=== PATIENT | male | born 1955 | race American Indian/Alaskan Native ===

== ENCOUNTER 2017-05-29 07:43 | Inpatient (IN) | payer OTHER ==
--- NOTE | 2017-05-29 07:58 | Emergency Department Report ---
ED General Adult HPI - General Chief complaint: Dyspnea/Respdistress Stated complaint: ALYCIA Time Seen by Provider: 05/29/17 07:57 Source: patient Mode of arrival: Ambulatory Limitations: No Limitations - History of Present Illness Initial comments: Patient is 62-year-old male past medical history of COPD who presents with severe shortness of breath that occurred today. Patient's shortness of breath is severe history is limited due to acuity of the patient's condition. Patient state that his shortness of breath started about 4 hours ago and has progressively gotten worse. Patient states that nothing makes it better or worse. He's had several years of smoking and he also has some neck swelling. - Related Data Home Medications Medication Instructions Recorded Confirmed Last Taken RX: No Known Home Medications [No 05/29/17 05/29/17 Unknown Reported Home Medications] Allergies Allergy/AdvReac Type Severity Reaction Status Date / Time No Known Allergies Allergy Unverified 05/29/17 07:50 ED Review of Systems ROS: Stated complaint: ALYCIA Other details as noted in HPI Constitutional: fever. denies: chills Eyes: denies: eye pain, eye discharge, vision change ENT: denies: ear pain, throat pain Respiratory: see HPI, shortness of breath. denies: cough, wheezing Cardiovascular: dyspnea on exertion. denies: chest pain, palpitations Endocrine: no symptoms reported Gastrointestinal: denies: abdominal pain, nausea, diarrhea Genitourinary: denies: urgency, dysuria Musculoskeletal: denies: back pain, joint swelling, arthralgia Skin: denies: rash, lesions Neurological: denies: headache, weakness, paresthesias Psychiatric: denies: anxiety, depression Hematological/Lymphatic: denies: easy bleeding, easy bruising ED Past Medical Hx - Past Medical History Previous Medical History?: No - Surgical History Past Surgical History?: No - Social History Smoking Status: Current Every Day Smoker Substance Use Type: None - Medications Home Medications: Home Medications Medication Instructions Recorded Confirmed Last Taken Type RX: No Known Home Medications [No 05/29/17 05/29/17 Unknown History Reported Home Medications] ED Physical Exam - General Limitations: No Limitations General appearance: alert, in no apparent distress - Head Head exam: Present: atraumatic, normocephalic - Eye Eye exam: Present: normal appearance - ENT ENT exam: Present: mucous membranes moist - Neck Neck exam: Present: normal inspection - Respiratory Respiratory exam: Present: respiratory distress, wheezes, accessory muscle use - Cardiovascular Cardiovascular Exam: Present: tachycardia. Absent: systolic murmur, diastolic murmur, rubs, gallop - GI/Abdominal GI/Abdominal exam: Present: soft, normal bowel sounds - Rectal Rectal exam: Present: deferred - Extremities Exam Extremities exam: Present: normal inspection - Back Exam Back exam: Present: normal inspection - Neurological Exam Neurological exam: Present: alert, oriented X3 - Psychiatric Psychiatric exam: Present: normal affect, normal mood - Skin Skin exam: Present: warm, dry, intact, normal color. Absent: rash ED Course Vital Signs 05/29/17 05/29/17 05/29/17 07:48 07:50 07:55 Temperature 100.7 F H Pulse Rate 118 H 113 H Pulse Rate [ Bilateral Throughout] Respiratory 28 H 28 H 27 H Rate Respiratory Rate [Bilateral Throughout] Blood Pressure 175/97 Blood Pressure [Left] O2 Sat by Pulse 96 96 Oximetry 05/29/17 05/29/17 05/29/17 08:00 08:15 08:30 Temperature Pulse Rate 122 H 113 H 110 H Pulse Rate [ Bilateral Throughout] Respiratory 29 H 30 H 25 H Rate Respiratory Rate [Bilateral Throughout] Blood Pressure 125/82 129/79 133/90 Blood Pressure [Left] O2 Sat by Pulse 100 80 L 94 Oximetry 05/29/17 05/29/17 05/29/17 08:45 09:00 09:03 Temperature Pulse Rate 118 H 116 H 116 H Pulse Rate [ Bilateral Throughout] Respiratory 23 19 26 H Rate Respiratory Rate [Bilateral Throughout] Blood Pressure 126/65 142/88 142/88 Blood Pressure [Left] O2 Sat by Pulse 100 100 97 Oximetry 05/29/17 05/29/17 05/29/17 09:05 09:06 09:15 Temperature Pulse Rate 115 H Pulse Rate [ 115 H 116 H Bilateral Throughout] Respiratory 24 Rate Respiratory 21 30 H Rate [Bilateral Throughout] Blood Pressure 127/87 Blood Pressure [Left] O2 Sat by Pulse 100 Oximetry 05/29/17 05/29/17 05/29/17 09:30 09:45 10:00 Temperature Pulse Rate 113 H 111 H 112 H Pulse Rate [ Bilateral Throughout] Respiratory 23 20 18 Rate Respiratory Rate [Bilateral Throughout] Blood Pressure 137/80 128/71 134/78 Blood Pressure [Left] O2 Sat by Pulse 100 100 100 Oximetry 05/29/17 05/29/17 05/29/17 10:43 10:45 11:00 Temperature Pulse Rate 106 H Pulse Rate [ Bilateral Throughout] Respiratory 34 H Rate Respiratory Rate [Bilateral Throughout] Blood Pressure 134/78 134/78 157/102 Blood Pressure [Left] O2 Sat by Pulse 98 99 Oximetry 05/29/17 11:50 Temperature 102.8 F H Pulse Rate 106 H Pulse Rate [ Bilateral Throughout] Respiratory 24 Rate Respiratory Rate [Bilateral Throughout] Blood Pressure Blood Pressure 122/84 [Left] O2 Sat by Pulse 100 Oximetry - Reevaluation(s) Reevaluation #1: 05/29/17 13:19 Patient is doing better on BiPAP patient will be admitted to the hospital service. ED Medical Decision Making - Lab Data Result diagrams: 05/29/17 07:58 05/29/17 07:58 Lab Results 05/29/17 05/29/17 05/29/17 Range/Units 07:58 07:58 08:00 WBC 23.6 H (4.5-11.0) K/mm3 RBC 5.09 H (3.65-5.03) M/mm3 Hgb 15.8 H (11.8-15.2) gm/dl Hct 46.4 H (35.5-45.6) % MCV 91 (84-94) fl MCH 31 (28-32) pg MCHC 34 (32-34) % RDW 13.7 (13.2-15.2) % Plt Count 177 (140-440) K/mm3 Add Manual Diff Complete Total Counted 100 Seg Neuts % (Manual) 91.0 H (40.0-70.0) % Band Neutrophils % 2.0 % Lymphocytes % (Manual) 2.0 L (13.4-35.0) % Reactive Lymphs % (Man) 0 % Monocytes % (Manual) 5.0 (0.0-7.3) % Eosinophils % (Manual) 0 (0.0-4.3) % Basophils % (Manual) 0 (0.0-1.8) % Metamyelocytes % 0 % Myelocytes % 0 % Promyelocytes % 0 % Blast Cells % 0 % Nucleated RBC % Not Reportable Seg Neutrophils # Man 21.5 H (1.8-7.7) K/mm3 Band Neutrophils # 0.5 K/mm3 Lymphocytes # (Manual) 0.5 L (1.2-5.4) K/mm3 Abs React Lymphs (Man) 0.0 K/mm3 Monocytes # (Manual) 1.2 H (0.0-0.8) K/mm3 Eosinophils # (Manual) 0.0 (0.0-0.4) K/mm3 Basophils # (Manual) 0.0 (0.0-0.1) K/mm3 Metamyelocytes # 0.0 K/mm3 Myelocytes # 0.0 K/mm3 Promyelocytes # 0.0 K/mm3 Blast Cells # 0.0 K/mm3 WBC Morphology Not Reportable Hypersegmented Neuts Not Reportable Hyposegmented Neuts Not Reportable Hypogranular Neuts Not Reportable Smudge Cells Not Reportable Toxic Granulation Not Reportable Toxic Vacuolation Not Reportable Dohle Bodies Not Reportable Pelger-Huet Anomaly Not Reportable Olegario Rods Not Reportable Platelet Estimate Appears normal Clumped Platelets Not Reportable Plt Clumps, EDTA Not Reportable Large Platelets Not Reportable Giant Platelets Not Reportable Platelet Satelliting Not Reportable Plt Morphology Comment Not Reportable RBC Morphology Normal Dimorphic RBCs Not Reportable Polychromasia Not Reportable Hypochromasia Not Reportable Poikilocytosis Not Reportable Anisocytosis Not Reportable Microcytosis Not Reportable Macrocytosis Not Reportable Spherocytes Not Reportable Pappenheimer Bodies Not Reportable Sickle Cells Not Reportable Target Cells Not Reportable Tear Drop Cells Not Reportable Ovalocytes Not Reportable Helmet Cells Not Reportable Roche-Pittston Bodies Not Reportable Shandon Rings Not Reportable Diana Cells Not Reportable Bite Cells Not Reportable Crenated Cell Not Reportable Elliptocytes Not Reportable Acanthocytes (Spur) Not Reportable Rouleaux Not Reportable Hemoglobin C Crystals Not Reportable Schistocytes Not Reportable Malaria parasites Not Reportable João Bodies Not Reportable Hem Pathologist Commnt No POC ABG pH (7.35-7.45) POC ABG pCO2 (35-45) POC ABG pO2 (80-105) POC ABG HCO3 POC ABG Total CO2 POC ABG O2 Sat POC ABG Base Excess FiO2 % Sodium 140 (137-145) mmol/L Potassium 3.7 (3.6-5.0) mmol/L Chloride 100.9 (98-107) mmol/L Carbon Dioxide 21 L (22-30) mmol/L Anion Gap 22 mmol/L BUN 14 (9-20) mg/dL Creatinine 0.9 (0.8-1.5) mg/dL Estimated GFR > 60 ml/min BUN/Creatinine Ratio 15.55 % Glucose 161 H (75-100) mg/dL Lactic Acid (0.7-2.0) mmol/L Calcium 9.5 (8.4-10.2) mg/dL Total Creatine Kinase (55-170) units/L Troponin T < 0.010 (0.00-0.029) ng/mL NT-Pro-B Natriuret Pep (0-900) pg/mL Urine Color Yellow (Yellow) Urine Turbidity Clear (Clear) Urine pH 6.0 (5.0-7.0) Ur Specific Frederic 1.036 H (1.003-1.030) Urine Protein 100 mg/dl (Negative) mg/dL Urine Glucose (UA) Neg (Negative) mg/dL Urine Ketones Tr (Negative) mg/dL Urine Blood Mod (Negative) Urine Nitrite Neg (Negative) Urine Bilirubin Neg (Negative) Urine Urobilinogen < 2.0 (<2.0) mg/dL Ur Leukocyte Esterase Neg (Negative) Urine WBC (Auto) 1.0 (0.0-6.0) /HPF Urine RBC (Auto) 4.0 (0.0-6.0) /HPF Urine Mucus Few /HPF Blood Type Antibody Screen 05/29/17 05/29/17 05/29/17 Range/Units 08:08 08:08 08:08 WBC (4.5-11.0) K/mm3 RBC (3.65-5.03) M/mm3 Hgb (11.8-15.2) gm/dl Hct (35.5-45.6) % MCV (84-94) fl MCH (28-32) pg MCHC (32-34) % RDW (13.2-15.2) % Plt Count (140-440) K/mm3 Add Manual Diff Total Counted Seg Neuts % (Manual) (40.0-70.0) % Band Neutrophils % % Lymphocytes % (Manual) (13.4-35.0) % Reactive Lymphs % (Man) % Monocytes % (Manual) (0.0-7.3) % Eosinophils % (Manual) (0.0-4.3) % Basophils % (Manual) (0.0-1.8) % Metamyelocytes % % Myelocytes % % Promyelocytes % % Blast Cells % % Nucleated RBC % Seg Neutrophils # Man (1.8-7.7) K/mm3 Band Neutrophils # K/mm3 Lymphocytes # (Manual) (1.2-5.4) K/mm3 Abs React Lymphs (Man) K/mm3 Monocytes # (Manual) (0.0-0.8) K/mm3 Eosinophils # (Manual) (0.0-0.4) K/mm3 Basophils # (Manual) (0.0-0.1) K/mm3 Metamyelocytes # K/mm3 Myelocytes # K/mm3 Promyelocytes # K/mm3 Blast Cells # K/mm3 WBC Morphology Hypersegmented Neuts Hyposegmented Neuts Hypogranular Neuts Smudge Cells Toxic Granulation Toxic Vacuolation Dohle Bodies Pelger-Huet Anomaly Olegario Rods Platelet Estimate Clumped Platelets Plt Clumps, EDTA Large Platelets Giant Platelets Platelet Satelliting Plt Morphology Comment RBC Morphology Dimorphic RBCs Polychromasia Hypochromasia Poikilocytosis Anisocytosis Microcytosis Macrocytosis Spherocytes Pappenheimer Bodies Sickle Cells Target Cells Tear Drop Cells Ovalocytes Helmet Cells Roche-Pittston Bodies Shandon Rings [place] Cells Bite Cells Crenated Cell Elliptocytes Acanthocytes (Spur) Rouleaux Hemoglobin C Crystals Schistocytes Malaria parasites João Bodies Hem Pathologist Commnt POC ABG pH (7.35-7.45) POC ABG pCO2 (35-45) POC ABG pO2 (80-105) POC ABG HCO3 POC ABG Total CO2 POC ABG O2 Sat POC ABG Base Excess FiO2 % Sodium (137-145) mmol/L Potassium (3.6-5.0) mmol/L Chloride (98-107) mmol/L Carbon Dioxide (22-30) mmol/L Anion Gap mmol/L BUN (9-20) mg/dL Creatinine (0.8-1.5) mg/dL Estimated GFR ml/min BUN/Creatinine Ratio % Glucose (75-100) mg/dL Lactic Acid 2.80 H* (0.7-2.0) mmol/L Calcium (8.4-10.2) mg/dL Total Creatine Kinase 273 H (55-170) units/L Troponin T (0.00-0.029) ng/mL NT-Pro-B Natriuret Pep 683.4 (0-900) pg/mL Urine Color (Yellow) Urine Turbidity (Clear) Urine pH (5.0-7.0) Ur Specific Frederic (1.003-1.030) Urine Protein (Negative) mg/dL Urine Glucose (UA) (Negative) mg/dL Urine Ketones (Negative) mg/dL Urine Blood (Negative) Urine Nitrite (Negative) Urine Bilirubin (Negative) Urine Urobilinogen (<2.0) mg/dL Ur Leukocyte Esterase (Negative) Urine WBC (Auto) (0.0-6.0) /HPF Urine RBC (Auto) (0.0-6.0) /HPF Urine Mucus /HPF Blood Type Antibody Screen 05/29/17 05/29/17 Range/Units 08:14 09:22 WBC (4.5-11.0) K/mm3 RBC (3.65-5.03) M/mm3 Hgb (11.8-15.2) gm/dl Hct (35.5-45.6) % MCV (84-94) fl MCH (28-32) pg MCHC (32-34) % RDW (13.2-15.2) % Plt Count (140-440) K/mm3 Add Manual Diff Total Counted Seg Neuts % (Manual) (40.0-70.0) % Band Neutrophils % % Lymphocytes % (Manual) (13.4-35.0) % Reactive Lymphs % (Man) % Monocytes % (Manual) (0.0-7.3) % Eosinophils % (Manual) (0.0-4.3) % Basophils % (Manual) (0.0-1.8) % Metamyelocytes % % Myelocytes % % Promyelocytes % % Blast Cells % % Nucleated RBC % Seg Neutrophils # Man (1.8-7.7) K/mm3 Band Neutrophils # K/mm3 Lymphocytes # (Manual) (1.2-5.4) K/mm3 Abs React Lymphs (Man) K/mm3 Monocytes # (Manual) (0.0-0.8) K/mm3 Eosinophils # (Manual) (0.0-0.4) K/mm3 Basophils # (Manual) (0.0-0.1) K/mm3 Metamyelocytes # K/mm3 Myelocytes # K/mm3 Promyelocytes # K/mm3 Blast Cells # K/mm3 WBC Morphology Hypersegmented Neuts Hyposegmented Neuts Hypogranular Neuts Smudge Cells Toxic Granulation Toxic Vacuolation Dohle Bodies Pelger-Huet Anomaly Olegario Rods Platelet Estimate Clumped Platelets Plt Clumps, EDTA Large Platelets Giant Platelets Platelet Satelliting Plt Morphology Comment RBC Morphology Dimorphic RBCs Polychromasia Hypochromasia Poikilocytosis Anisocytosis Microcytosis Macrocytosis Spherocytes Pappenheimer Bodies Sickle Cells Target Cells Tear Drop Cells Ovalocytes Helmet Cells Roche-Pittston Bodies [place] Rings [place] Cells Bite Cells Crenated Cell Elliptocytes Acanthocytes (Spur) Rouleaux Hemoglobin C Crystals Schistocytes Malaria parasites João Bodies Hem Pathologist Commnt POC ABG pH 7.452 H (7.35-7.45) POC ABG pCO2 28.2 L (35-45) POC ABG pO2 95 (80-105) POC ABG HCO3 19.7 POC ABG Total CO2 21 POC ABG O2 Sat 98 POC ABG Base Excess -4 FiO2 30 % Sodium (137-145) mmol/L Potassium (3.6-5.0) mmol/L Chloride (98-107) mmol/L Carbon Dioxide (22-30) mmol/L Anion Gap mmol/L BUN (9-20) mg/dL Creatinine (0.8-1.5) mg/dL Estimated GFR ml/min BUN/Creatinine Ratio % Glucose (75-100) mg/dL Lactic Acid (0.7-2.0) mmol/L Calcium (8.4-10.2) mg/dL Total Creatine Kinase (55-170) units/L Troponin T (0.00-0.029) ng/mL NT-Pro-B Natriuret Pep (0-900) pg/mL Urine Color (Yellow) Urine Turbidity (Clear) Urine pH (5.0-7.0) Ur Specific Frederic (1.003-1.030) Urine Protein (Negative) mg/dL Urine Glucose (UA) (Negative) mg/dL Urine Ketones (Negative) mg/dL Urine Blood (Negative) Urine Nitrite (Negative) Urine Bilirubin (Negative) Urine Urobilinogen (<2.0) mg/dL Ur Leukocyte Esterase (Negative) Urine WBC (Auto) (0.0-6.0) /HPF Urine RBC (Auto) (0.0-6.0) /HPF Urine Mucus /HPF Blood Type B POSITIVE Antibody Screen Negative - EKG Data -: EKG Interpreted by Me - EKG Data 05/29/17 13:20 EKG shows sinus tachycardia normal axis and no ST segment elevations or T-wave inversions. - Radiology Data Radiology results: report reviewed, image reviewed CT chest meningeal: Shows no pulmonary embolism also shows enlarged neck pathology neoplasm or lymphadenopathy AR suspected. Recommendation for dedicated CT contrast of neck. - Medical Decision Making Chief medical diagnosis: COPD exacerbation Differential diagnosis: Pulmonary embolism, pneumonia, sepsis, non-STEMI, congestive heart failure I will get EKG, fluid bolus, blood cultures, CT angiogram, troponin, IV steroids and I will admit the patient with BiPAP Discussed patient with Dr. Li patient has respiratory distress and has a potentially life-threatening illness. Discussed plan with patient he agrees with plan. Critical Care Time: Yes Critical care time in (mins) excluding proc time.: 35 Critical care attestation.: If time is entered above; I have spent that time in minutes in the direct care of this critically ill patient, excluding procedure time. Critical care time spent a patient's bedside 20 minutes Critical care time spent reviewing patient's laboratory findings 10 minutes Critical care time spent in old record 0 minutes Critical care consult with patient's family 5 minutes ED Disposition Clinical Impression: Respiratory distress COPD (chronic obstructive pulmonary disease) Qualifiers: COPD type: unspecified COPD Qualified Code(s): J44.9 - Chronic obstructive pulmonary disease, unspecified Sepsis Qualifiers: Sepsis type: sepsis due to unspecified organism Qualified Code(s): A41.9 - Sepsis, unspecified organism Disposition: OP ADMIT IP TO THIS HOSP Is pt being admited?: Yes Does the pt Need Aspirin: No Condition: Stable
[2017-05-29] MEDS ORDERED: ATROVENT IH ONE (07:59)
[2017-05-29] MEDS ORDERED: PROVENTIL IH ONE (07:59)
[2017-05-29] MEDS: NACL 0.9% 1000 ML IV ONE ×2 (08:10→08:32)
[2017-05-29 08:29] LABS: Hematocrit 46.4 % (35.5-45.6); Hemoglobin 15.8 gm/dl (11.8-15.2); Mean Corpuscular HGB Conc 34 % (32-34); Mean Corpuscular Hemoglobin 31 pg (28-32); Mean Corpuscular Volume 91 fl (84-94); Platelet Count 177 K/mm3 (140-440); Red Blood Count 5.09 M/mm3 (3.65-5.03); Red Cell Distribution Width 13.7 % (13.2-15.2)
[2017-05-29 08:31] LABS: White Blood Count 23.6 K/mm3 (4.5-11.0)
[2017-05-29 08:35] LABS: Anion Gap 22 mmol/L; BUN/Creatinine Ratio 15.55; Blood Urea Nitrogen 14 mg/dL (9-20); Calcium 9.5 mg/dL (8.4-10.2); Carbon Dioxide 21 mmol/L (22-30); Chloride 100.9 mmol/L (98-107); Glucose 161 mg/dL (75-100); Potassium 3.7 mmol/L (3.6-5.0); Sodium 140 mmol/L (137-145)
--- NOTE | 2017-05-29 08:49 | XRay Report ---
AP CHEST: HISTORY: Shortness of breath AP view of the chest demonstrates a normal mediastinal and cardiac contour with clear lungs and normal bony and soft tissue structures. IMPRESSION: Unremarkable AP chest.
[2017-05-29 09:41] LABS: Basophils % (Manual) 0 % (0.0-1.8); Blastocytes % (Manual) 0 %; Eosinophils % (Manual) 0 % (0.0-4.3)
[2017-05-29 09:42] LABS: Diff Status Complete; RBC Morphology Normal
[2017-05-29 09:58] LABS: ISTAT Base Excess -4; ISTAT HCO3 19.7; ISTAT PCO2 28.2 (35-45); ISTAT PH 7.452 (7.35-7.45); ISTAT PO2 95 (80-105); ISTAT SO2 98; ISTAT TCO2 21
[2017-05-29] MEDS ORDERED: NACL ONE (10:04)
[2017-05-29] MEDS ORDERED: VANCOMYCIN VIAL IV ONE (10:57)
[2017-05-29] MEDS ORDERED: VANCOMYCIN PHARMACY TO DOSE IV SCH (11:00)
--- NOTE | 2017-05-29 11:06 | Cat Scan Report ---
CTA CHEST INDICATION: Chest pain, shortness of breath, tachycardia. COMPARISON: None similar. FINDINGS: Chest CTA performed following intravenous administration of 100 cc of Omnipaque 350. Rotational MIP's also obtained. Normal heart size. No effusions or adenopathy. No aortic aneurysm, dissection or suspicious pulmonary arterial filling defects. Patent central airway. Normal thyroid. Subtle fat stranding about the imaged neck not excluded with prominent soft tissue in the imaged hypopharynx, axial series 3, images 1-14. Approximately 3 cm round soft tissue density in the right neck as on axial image 2 also partially imaged, though asymmetric to the opposite side given some patient tilt, conceivably the submandibular gland versus a lymph node. Diffuse bilateral emphysematous changes with largest peripheral bullae in the upper lobes measuring up to approximately 4.5 cm as on axial image 89. Nonspecific distal esophageal wall prominence/thickening, not excluded for gastroesophageal reflux and/or hiatal hernia, amongst others. Imaged upper abdomen demonstrates left hepatic lobe tip wrapping around the spleen. Few scattered hepatic hypodensities, the largest approximately 1.1 cm in the left upper quadrant on axial image 217, series 2 and possibly cyst with others similar or smaller. Slight hypodense bilateral adrenal prominence/possible hyperplasia. Multilevel prominent thoracic spine degenerative osteophytes as also lower cervical. Lower thoracic disc degeneration/vacuum phenomenon as well. CONCLUSION: 1. No acute chest process or CT evidence of pulmonary embolism in this patient with underlying COPD. 2. Imaged neck pathology including neoplasm and/or lymphadenopathy not entirely excluded, as described. Please correlate clinically, with prior relevant imaging or further with dedicated neck contrasted CT, as appropriate. 3. Various other incidental findings, as above. I phoned the above results to Dr. Espinoza in the ER, 10:55 AM, 05/29/2017. Thank you for the opportunity to participate in this patient's care.
[2017-05-29] MEDS ORDERED: ZOSYN/NS 3.375GM/50ML 3.375 GM/50 ML BAG IV ONE (11:28)
[2017-05-29] MEDS ORDERED: NACL 0.9% 500 ML 500 ML ONE (11:29)
[2017-05-29] MEDS ORDERED: TYLENOL ONE (11:55)
[2017-05-29] MEDS ORDERED: TYLENOL PO ONE (11:56)
[2017-05-29] MEDS ORDERED: ZOSYN/NS 3.375GM/50ML 3.375 GM/50 ML BAG IV SCH (12:00)
--- NOTE | 2017-05-29 12:07 | History and Physical Report ---
<ANNIE INFANTE - Last Filed: 05/29/17 13:42> History of Present Illness Date of examination: 05/29/17 Date of admission: 05/29/17 11:03 Chief complaint: Shortness of breath History of present illness: Patient is 62 years old male with past medical history of COPD , who presents to the emergency department with complaining of shortness of breath.Until yesterday patient was at his normal baseline state of health. Patient developed difficulty of breathing yesterday and he has had progressive worsening of shortness of breath. This morning while going to the bathroom, shortly thereafter, he felt like he could not catch his breath and got worried so his brought him to the ED. Patient denies she has had no fevers, chills , or night sweats. No hx of recurrent pneumonia. He has no sick contact, TB exposure (that she knows of ie incarcerated, homeless). She also has no pets, has not been around any farm animals, and has not traveled recently or been around those who have. Patient in the emergency department found to have fever 102.7 and septic. Past History Past Medical History: COPD Past Surgical History: No surgical history Social history: no significant social history, smoking Family history: CAD, hypertension Medications and Allergies Allergies Allergy/AdvReac Type Severity Reaction Status Date / Time No Known Allergies Allergy Unverified 05/29/17 07:50 Home Medications Medication Instructions Recorded Confirmed Last Taken Type No Known Home Medications [No 05/29/17 05/29/17 Unknown History Reported Home Medications] Active Meds: Active Medications Enoxaparin Sodium (Lovenox) 40 mg SUB-Q QDAY AGUEDA Piperacillin Sod/Tazobactam Sod (Zosyn/Ns 4.5gm/100ml) 4.5 gm in 100 mls @ 200 mls/hr IV Q8H AGUEDA Vancomycin HCl 1,500 mg/ (Sodium Chloride) 515 mls @ 257.5 mls/hr IV Q12H AGUEDA Levofloxacin/Dextrose (Levaquin 750mg/150ml) 750 mg in 150 mls @ 100 mls/hr IV Q24HR AGUEDA PRN Reason: Protocol Vancomycin HCl (Vancomycin Pharmacy To Dose) 1 each IV PKCONSULT AGUEDA PRN Reason: Protocol Review of Systems Constitutional: no weight loss, no weight gain, no fever Ears, nose, mouth and throat: no ear pain, no ear discharge, no tinnitis, no decreased hearing, no nose pain Cardiovascular: shortness of breath, dyspnea on exertion, no chest pain, no orthopnea, no palpitations Respiratory: shortness of breath, dyspnea on exertion, congestion, no cough, no cough with sputum, no hemoptysis Gastrointestinal: no nausea, no vomiting, no diarrhea, no constipation, no change in bowel habits, no hematemesis Rectal: no pain, no bleeding Musculoskeletal: no neck stiffness, no neck pain, no shooting arm pain, no low back pain Integumentary: no pruritis, no redness, no sores, no jaundice Neurological: no transient paralysis, no paralysis, no weakness, no parathesias , no numbness Psychiatric: no memory loss, no change in sleep habits, no insomnia, no change in appetite Endocrine: no cold intolerance, no heat intolerance, no polyphagia, no excessive thirst Hematologic/Lymphatic: no easy bruising, no easy bleeding Allergic/Immunologic: no urticaria, no allergic rhinitis Exam - Constitutional Vitals: Temp Pulse Resp BP Pulse Ox 100.7 F H 106 H 34 H 157/102 99 05/29/17 07:48 05/29/17 11:00 05/29/17 11:00 05/29/17 11:00 05/29/17 11:00 General appearance: Present: mild distress (On BiPAP 35% with Spo2 >95%) - EENT Eyes: Present: PERRL ENT: hearing intact - Neck Neck: Present: supple - Respiratory Respiratory effort: normal Respiratory: bilateral: rhonchi - Cardiovascular Rhythm: regular Heart Sounds: Present: S1 & S2 - Extremities Extremities: no ischemia Peripheral Pulses: within normal limits - Abdominal General gastrointestinal: Present: soft, non-tender Male genitourinary: Present: deferred - Rectal Rectal Exam: deferred - Integumentary Integumentary: Present: clear, warm, dry - Musculoskeletal Musculoskeletal: strength equal bilaterally - Psychiatric Psychiatric: appropriate mood/affect - Neurologic Neurologic: CNII-XII intact - Allied Health Allied health notes reviewed: nursing Results - Labs CBC & Chem 7: 05/29/17 07:58 05/29/17 07:58 Labs: Laboratory Last Values WBC 23.6 K/mm3 (4.5-11.0) H 05/29/17 07:58 RBC 5.09 M/mm3 (3.65-5.03) H 05/29/17 07:58 Hgb 15.8 gm/dl (11.8-15.2) H 05/29/17 07:58 Hct 46.4 % (35.5-45.6) H 05/29/17 07:58 MCV 91 fl (84-94) 05/29/17 07:58 MCH 31 pg (28-32) 05/29/17 07:58 MCHC 34 % (32-34) 05/29/17 07:58 RDW 13.7 % (13.2-15.2) 05/29/17 07:58 Plt Count 177 K/mm3 (140-440) 05/29/17 07:58 Add Manual Diff Complete 05/29/17 07:58 Total Counted 100 05/29/17 07:58 Seg Neuts % (Manual) 91.0 % (40.0-70.0) H 05/29/17 07:58 Band Neutrophils % 2.0 % 05/29/17 07:58 Lymphocytes % (Manual) 2.0 % (13.4-35.0) L 05/29/17 07:58 Reactive Lymphs % (Man) 0 % 05/29/17 07:58 Monocytes % (Manual) 5.0 % (0.0-7.3) 05/29/17 07:58 Eosinophils % (Manual) 0 % (0.0-4.3) 05/29/17 07:58 Basophils % (Manual) 0 % (0.0-1.8) 05/29/17 07:58 Metamyelocytes % 0 % 05/29/17 07:58 Myelocytes % 0 % 05/29/17 07:58 Promyelocytes % 0 % 05/29/17 07:58 Blast Cells % 0 % 05/29/17 07:58 Nucleated RBC % Not Reportable 05/29/17 07:58 Seg Neutrophils # Man 21.5 K/mm3 (1.8-7.7) H 05/29/17 07:58 Band Neutrophils # 0.5 K/mm3 05/29/17 07:58 Lymphocytes # (Manual) 0.5 K/mm3 (1.2-5.4) L 05/29/17 07:58 Abs React Lymphs (Man) 0.0 K/mm3 05/29/17 07:58 Monocytes # (Manual) 1.2 K/mm3 (0.0-0.8) H 05/29/17 07:58 Eosinophils # (Manual) 0.0 K/mm3 (0.0-0.4) 05/29/17 07:58 Basophils # (Manual) 0.0 K/mm3 (0.0-0.1) 05/29/17 07:58 Metamyelocytes # 0.0 K/mm3 05/29/17 07:58 Myelocytes # 0.0 K/mm3 05/29/17 07:58 Promyelocytes # 0.0 K/mm3 05/29/17 07:58 Blast Cells # 0.0 K/mm3 05/29/17 07:58 WBC Morphology Not Reportable 05/29/17 07:58 Hypersegmented Neuts Not Reportable 05/29/17 07:58 Hyposegmented Neuts Not Reportable 05/29/17 07:58 Hypogranular Neuts Not Reportable 05/29/17 07:58 Smudge Cells Not Reportable 05/29/17 07:58 Toxic Granulation Not Reportable 05/29/17 07:58 Toxic Vacuolation Not Reportable 05/29/17 07:58 Dohle Bodies Not Reportable 05/29/17 07:58 Pelger-Huet Anomaly Not Reportable 05/29/17 07:58 Olegario Rods Not Reportable 05/29/17 07:58 Platelet Estimate Appears normal 05/29/17 07:58 Clumped Platelets Not Reportable 05/29/17 07:58 Plt Clumps, EDTA Not Reportable 05/29/17 07:58 Large Platelets Not Reportable 05/29/17 07:58 Giant Platelets Not Reportable 05/29/17 07:58 Platelet Satelliting Not Reportable 05/29/17 07:58 Plt Morphology Comment Not Reportable 05/29/17 07:58 RBC Morphology Normal 05/29/17 07:58 Dimorphic RBCs Not Reportable 05/29/17 07:58 Polychromasia Not Reportable 05/29/17 07:58 Hypochromasia Not Reportable 05/29/17 07:58 Poikilocytosis Not Reportable 05/29/17 07:58 Anisocytosis Not Reportable 05/29/17 07:58 Microcytosis Not Reportable 05/29/17 07:58 Macrocytosis Not Reportable 05/29/17 07:58 Spherocytes Not Reportable 05/29/17 07:58 Pappenheimer Bodies Not Reportable 05/29/17 07:58 Sickle Cells Not Reportable 05/29/17 07:58 Target Cells Not Reportable 05/29/17 07:58 Tear Drop Cells Not Reportable 05/29/17 07:58 Ovalocytes Not Reportable 05/29/17 07:58 Helmet Cells Not Reportable 05/29/17 07:58 Roche-Edisto Bodies Not Reportable 05/29/17 07:58 [place]cliff Rings Not Reportable 05/29/17 07:58 [place]light Cells Not Reportable 05/29/17 07:58 Bite Cells Not Reportable 05/29/17 07:58 Crenated Cell Not Reportable 05/29/17 07:58 Elliptocytes Not Reportable 05/29/17 07:58 Acanthocytes (Spur) Not Reportable 05/29/17 07:58 Rouleaux Not Reportable 05/29/17 07:58 Hemoglobin C Crystals Not Reportable 05/29/17 07:58 Schistocytes Not Reportable 05/29/17 07:58 Malaria parasites Not Reportable 05/29/17 07:58 João Bodies Not Reportable 05/29/17 07:58 Hem Pathologist Commnt No 05/29/17 07:58 POC ABG pH 7.452 (7.35-7.45) H 05/29/17 09:22 POC ABG pCO2 28.2 (35-45) L 05/29/17 09:22 POC ABG pO2 95 (80-105) 05/29/17 09:22 POC ABG HCO3 19.7 05/29/17 09:22 POC ABG Total CO2 21 05/29/17 09:22 POC ABG O2 Sat 98 05/29/17 09:22 POC ABG Base Excess -4 05/29/17 09:22 FiO2 30 % 05/29/17 09:22 Sodium 140 mmol/L (137-145) 05/29/17 07:58 Potassium 3.7 mmol/L (3.6-5.0) 05/29/17 07:58 Chloride 100.9 mmol/L (98-107) 05/29/17 07:58 Carbon Dioxide 21 mmol/L (22-30) L 05/29/17 07:58 Anion Gap 22 mmol/L 05/29/17 07:58 BUN 14 mg/dL (9-20) 05/29/17 07:58 Creatinine 0.9 mg/dL (0.8-1.5) 05/29/17 07:58 Estimated GFR > 60 ml/min 05/29/17 07:58 BUN/Creatinine Ratio 15.55 % 05/29/17 07:58 Glucose 161 mg/dL (75-100) H 05/29/17 07:58 Lactic Acid 2.80 mmol/L (0.7-2.0) H* 05/29/17 08:08 Calcium 9.5 mg/dL (8.4-10.2) 05/29/17 07:58 Total Creatine Kinase 273 units/L (55-170) H 05/29/17 08:08 Troponin T < 0.010 ng/mL (0.00-0.029) 05/29/17 07:58 NT-Pro-B Natriuret Pep 683.4 pg/mL (0-900) 05/29/17 08:08 Blood Type B POSITIVE 05/29/17 08:14 Antibody Screen Negative 05/29/17 08:14 - Imaging and Cardiology Chest x-ray: image reviewed (unremarkable) CT scan - chest: image reviewed (Lymphadenopathy VS neck neoplasm) Assessment and Plan Assessment and plan: Acute respiratory failure with hypoxia Patient oxygen saturation improved with BiPAP 35%.Patient currently on BiPAP 35 % with SPO2 98%. No acute respiratory distress noted. Aggressive Nebulizers/Inhalers ABG when necessary Oxygen supplement Pulmonary consult. Supportive care Severe Sepsis Blood and urine culture collected prior to antibiotic Follow-up with cultures Fluid resuscitation and gently IV fluid hydration Patient received IV vancomycin and Zosyn in the emergency department Started on empiric treatment IV Levaquin. Supportive care Leukocytosis Secondary to sepsis Treat with antibiotic and we will repeat CBC Closely monitor Acute COPD exacerbation Continue on Duoneb every 6 hours Wean IV steroid Solumedrol Patient received IV vancomycin and Zosyn in the emergency department. Started on Iv Levaquin Oxygen as necessary Possible pneumonia Unremarkable chest x-ray CTA revealed no evidence pulmonary embolism Fever and physical assessment indicates pneumonia started on Levaquin Elevated lactic acid Secondary to sepsis We will repeat lactic acid level Closely monitor Lymphadenopathy VS neck neoplasm CTA revealed Lymphadenopathy VS neck neoplasm. we will get CT of the neck with contrast in the AM Hypertensive urgency Continue home antihypertensive medications Closely monitor blood pressure Mild Rhabdomyolysis IV fluid hydration Closely monitor total creatinine kinase Tobacco use Smoking cessation counseling done. Patient strongly advised to quit. DVT prophylaxis Lovenox Advance Directives: Yes VTE prophylaxis?: Chemical Contraindication Mechanical VTE Prophylaxis: Treatment Not Indicated Plan of care discussed with patient/family: Yes <PACO NAVARRETE S - Last Filed: 05/29/17 14:41> History of Present Illness Date of admission: 05/29/17 11:03 Medications and Allergies Active Meds: Active Medications Acetaminophen (Tylenol) 650 mg PO Q4H PRN PRN Reason: Pain MILD(1-3)/Fever >100.5/JASSO Albuterol (Proventil) 2.5 mg IH Q4HRT PRN PRN Reason: Shortness Of Breath Albuterol/Ipratropium (Duoneb *Not For Prn Use*) 1 ampul IH Q6HRT AGUEDA Bisacodyl (Dulcolax) 10 mg CO QDAY PRN PRN Reason: Constipation unrelieved by MOM Enoxaparin Sodium (Lovenox) 40 mg SUB-Q QDAY AGUEDA Piperacillin Sod/Tazobactam Sod (Zosyn/Ns 4.5gm/100ml) 4.5 gm in 100 mls @ 200 mls/hr IV Q8H AGUEDA Vancomycin HCl 1,500 mg/ (Sodium Chloride) 515 mls @ 257.5 mls/hr IV Q12H AGUEDA Levofloxacin/Dextrose (Levaquin 750mg/150ml) 750 mg in 150 mls @ 100 mls/hr IV Q24H AGUEDA PRN Reason: Protocol Last Admin: 05/29/17 14:16 Dose: 100 mls/hr Sodium Chloride (Nacl 0.9% 1000 Ml) 1,000 mls @ 75 mls/hr IV DIRECT AGUEDA Magnesium Hydroxide (Milk Of Magnesia) 30 ml PO Q4H PRN PRN Reason: Constipation Methylprednisolone Sodium Succinate (Solu-Medrol) 40 mg IV Q6H [facility] Last Admin: 05/29/17 14:16 Dose: 40 mg Ondansetron HCl (Zofran) 4 mg IM Q4H PRN PRN Reason: Nausea And Vomiting Vancomycin HCl (Vancomycin Pharmacy To Dose) 1 each IV PKCONSULT AGUEDA PRN Reason: Protocol Exam - Constitutional Vitals: Temp Pulse Resp BP Pulse Ox 102.8 F H 106 H 24 141/81 97 05/29/17 11:50 05/29/17 11:50 05/29/17 11:50 05/29/17 12:10 05/29/17 12:10 Results - Labs CBC & Chem 7: 05/29/17 07:58 05/29/17 07:58 Labs: Laboratory Last Values WBC 23.6 K/mm3 (4.5-11.0) H 05/29/17 07:58 RBC 5.09 M/mm3 (3.65-5.03) H 05/29/17 07:58 Hgb 15.8 gm/dl (11.8-15.2) H 05/29/17 07:58 Hct 46.4 % (35.5-45.6) H 05/29/17 07:58 MCV 91 fl (84-94) 05/29/17 07:58 MCH 31 pg (28-32) 05/29/17 07:58 MCHC 34 % (32-34) 05/29/17 07:58 RDW 13.7 % (13.2-15.2) 05/29/17 07:58 Plt Count 177 K/mm3 (140-440) 05/29/17 07:58 Add Manual Diff Complete 05/29/17 07:58 Total Counted 100 05/29/17 07:58 Seg Neuts % (Manual) 91.0 % (40.0-70.0) H 05/29/17 07:58 Band Neutrophils % 2.0 % 05/29/17 07:58 Lymphocytes % (Manual) 2.0 % (13.4-35.0) L 05/29/17 07:58 Reactive Lymphs % (Man) 0 % 05/29/17 07:58 Monocytes % (Manual) 5.0 % (0.0-7.3) 05/29/17 07:58 Eosinophils % (Manual) 0 % (0.0-4.3) 05/29/17 07:58 Basophils % (Manual) 0 % (0.0-1.8) 05/29/17 07:58 Metamyelocytes % 0 % 05/29/17 07:58 Myelocytes % 0 % 05/29/17 07:58 Promyelocytes % 0 % 05/29/17 07:58 Blast Cells % 0 % 05/29/17 07:58 Nucleated RBC % Not Reportable 05/29/17 07:58 Seg Neutrophils # Man 21.5 K/mm3 (1.8-7.7) H 05/29/17 07:58 Band Neutrophils # 0.5 K/mm3 05/29/17 07:58 Lymphocytes # (Manual) 0.5 K/mm3 (1.2-5.4) L 05/29/17 07:58 Abs React Lymphs (Man) 0.0 K/mm3 05/29/17 07:58 Monocytes # (Manual) 1.2 K/mm3 (0.0-0.8) H 05/29/17 07:58 Eosinophils # (Manual) 0.0 K/mm3 (0.0-0.4) 05/29/17 07:58 Basophils # (Manual) 0.0 K/mm3 (0.0-0.1) 05/29/17 07:58 Metamyelocytes # 0.0 K/mm3 05/29/17 07:58 Myelocytes # 0.0 K/mm3 05/29/17 07:58 Promyelocytes # 0.0 K/mm3 05/29/17 07:58 Blast Cells # 0.0 K/mm3 05/29/17 07:58 WBC Morphology Not Reportable 05/29/17 07:58 Hypersegmented Neuts Not Reportable 05/29/17 07:58 Hyposegmented Neuts Not Reportable 05/29/17 07:58 Hypogranular Neuts Not Reportable 05/29/17 07:58 Smudge Cells Not Reportable 05/29/17 07:58 Toxic Granulation Not Reportable 05/29/17 07:58 Toxic Vacuolation Not Reportable 05/29/17 07:58 Dohle Bodies Not Reportable 05/29/17 07:58 Pelger-Huet Anomaly Not Reportable 05/29/17 07:58 Olegario Rods Not Reportable 05/29/17 07:58 Platelet Estimate Appears normal 05/29/17 07:58 Clumped Platelets Not Reportable 05/29/17 07:58 Plt Clumps, EDTA Not Reportable 05/29/17 07:58 Large Platelets Not Reportable 05/29/17 07:58 Giant Platelets Not Reportable 05/29/17 07:58 Platelet Satelliting Not Reportable 05/29/17 07:58 Plt Morphology Comment Not Reportable 05/29/17 07:58 RBC Morphology Normal 05/29/17 07:58 Dimorphic RBCs Not Reportable 05/29/17 07:58 Polychromasia Not Reportable 05/29/17 07:58 Hypochromasia Not Reportable 05/29/17 07:58 Poikilocytosis Not Reportable 05/29/17 07:58 Anisocytosis Not Reportable 05/29/17 07:58 Microcytosis Not Reportable 05/29/17 07:58 Macrocytosis Not Reportable 05/29/17 07:58 Spherocytes Not Reportable 05/29/17 07:58 Pappenheimer Bodies Not Reportable 05/29/17 07:58 Sickle Cells Not Reportable 05/29/17 07:58 Target Cells Not Reportable 05/29/17 07:58 Tear Drop Cells Not Reportable 05/29/17 07:58 Ovalocytes Not Reportable 05/29/17 07:58 Helmet Cells Not Reportable 05/29/17 07:58 Roche-Edisto Bodies Not Reportable 05/29/17 07:58 Ratcliff Rings Not Reportable 05/29/17 07:58 Diana Cells Not Reportable 05/29/17 07:58 Bite Cells Not Reportable 05/29/17 07:58 Crenated Cell Not Reportable 05/29/17 07:58 Elliptocytes Not Reportable 05/29/17 07:58 Acanthocytes (Spur) Not Reportable 05/29/17 07:58 Rouleaux Not Reportable 05/29/17 07:58 Hemoglobin C Crystals Not Reportable 05/29/17 07:58 Schistocytes Not Reportable 05/29/17 07:58 Malaria parasites Not Reportable 05/29/17 07:58 João Bodies Not Reportable 05/29/17 07:58 Hem Pathologist Commnt No 05/29/17 07:58 POC ABG pH 7.452 (7.35-7.45) H 05/29/17 09:22 POC ABG pCO2 28.2 (35-45) L 05/29/17 09:22 POC ABG pO2 95 (80-105) 05/29/17 09:22 POC ABG HCO3 19.7 05/29/17 09:22 POC ABG Total CO2 21 05/29/17 09:22 POC ABG O2 Sat 98 05/29/17 09:22 POC ABG Base Excess -4 05/29/17 09:22 FiO2 30 % 05/29/17 09:22 Sodium 140 mmol/L (137-145) 05/29/17 07:58 Potassium 3.7 mmol/L (3.6-5.0) 05/29/17 07:58 Chloride 100.9 mmol/L (98-107) 05/29/17 07:58 Carbon Dioxide 21 mmol/L (22-30) L 05/29/17 07:58 Anion Gap 22 mmol/L 05/29/17 07:58 BUN 14 mg/dL (9-20) 05/29/17 07:58 Creatinine 0.9 mg/dL (0.8-1.5) 05/29/17 07:58 Estimated GFR > 60 ml/min 05/29/17 07:58 BUN/Creatinine Ratio 15.55 % 05/29/17 07:58 Glucose 161 mg/dL (75-100) H 05/29/17 07:58 Lactic Acid 2.40 mmol/L (0.7-2.0) H* 05/29/17 12:37 Calcium 9.5 mg/dL (8.4-10.2) 05/29/17 07:58 Total Creatine Kinase 273 units/L (55-170) H 05/29/17 08:08 Troponin T < 0.010 ng/mL (0.00-0.029) 05/29/17 07:58 NT-Pro-B Natriuret Pep 683.4 pg/mL (0-900) 05/29/17 08:08 Urine Color Yellow (Yellow) 05/29/17 08:00 Urine Turbidity Clear (Clear) 05/29/17 08:00 Urine pH 6.0 (5.0-7.0) 05/29/17 08:00 Ur Specific [place] 1.036 (1.003-1.030) H 05/29/17 08:00 Urine Protein 100 mg/dl mg/dL (Negative) 05/29/17 08:00 Urine Glucose (UA) Neg mg/dL (Negative) 05/29/17 08:00 Urine Ketones Tr mg/dL (Negative) 05/29/17 08:00 Urine Blood Mod (Negative) 05/29/17 08:00 Urine Nitrite Neg (Negative) 05/29/17 08:00 Urine Bilirubin Neg (Negative) 05/29/17 08:00 Urine Urobilinogen < 2.0 mg/dL (<2.0) 05/29/17 08:00 Ur Leukocyte Esterase Neg (Negative) 05/29/17 08:00 Urine WBC (Auto) 1.0 /HPF (0.0-6.0) 05/29/17 08:00 Urine RBC (Auto) 4.0 /HPF (0.0-6.0) 05/29/17 08:00 Urine Mucus Few /HPF 05/29/17 08:00 Blood Type B POSITIVE 05/29/17 08:14 Antibody Screen Negative 05/29/17 08:14 Assessment and Plan Assessment and plan: Case reviewed.Agree with assessment and plan.
[2017-05-29] MEDS ORDERED: MILK OF MAGNESIA PO PRN (12:09)
[2017-05-29] MEDS ORDERED: DULCOLAX PR PRN (12:09)
[2017-05-29] MEDS ORDERED: ZOFRAN IM PRN (12:15)
[2017-05-29] MEDS ORDERED: PROVENTIL IH PRN (12:33)
[2017-05-29] MEDS ORDERED: ZOSYN/NS 4.5GM/100ML 4.5 GM/100 ML VIAL IV SCH (13:00)
[2017-05-29 13:04] LABS: Bilirubin,Urine NEG (Negative); Blood,Urine MOD (Negative); Ketones,Urine TR mg/dL (Negative); Leukocyte Esterase,Urine NEG (Negative); Mucus,Urine FEW /HPF; Nitrite,Urine NEG (Negative); Urobilinogen,Urine < 2.0 mg/dL (<2.0)
[2017-05-29] MEDS ORDERED: ATROVENT IH SCH (14:00)
[2017-05-29] MEDS: LEVAQUIN 750MG/150ML 750 MG/150 ML BAG IV SCH (14:16)
[2017-05-29] MEDS: DUONEB *Not for PRN Use IH SCH ×2 (14:20→19:24)
[2017-05-29] MEDS ORDERED: PROVENTIL IH SCH (16:00)
[2017-05-29] MEDS: VANCOMYCIN 1,500 MG in NACL 0.9% 500 ML 500 ML IV SCH (18:01)
[2017-05-29] MEDS: ZOSYN/NS 4.5GM/100ML 4.5 GM/100 ML VIAL IV SCH (23:09)
[2017-05-29] MEDS: NACL 0.9% 1000 ML 1,000 ML IV SCH (23:09)
[2017-05-30] MEDS: DUONEB *Not for PRN Use IH SCH ×4 (03:08→20:04)
[2017-05-30] MEDS: ZOSYN/NS 4.5GM/100ML 4.5 GM/100 ML VIAL IV SCH ×3 (03:21→20:44)
[2017-05-30] MEDS: VANCOMYCIN 1,500 MG in NACL 0.9% 500 ML 500 ML IV SCH ×2 (04:57→18:12)
[2017-05-30] MEDS ORDERED: NACL ONE (09:22)
[2017-05-30] MEDS ORDERED: LOVENOX SUB-Q SCH ×2 (10:00)
[2017-05-30] MEDS: TYLENOL PO PRN ×2 (11:35→21:12)
[2017-05-30] MEDS ORDERED: Fluarix Quad 2017-2018(36 MOS+) IM ONE (12:24)
--- NOTE | 2017-05-30 12:31 | Cat Scan Report ---
CT NECK WITH CONTRAST INDICATION: Neck swelling. Evaluate for neoplasm or lymphadenopathy. COMPARISON: Chest CT from yesterday. FINDINGS: Axial, sagittal and coronal CT reconstructions through the neck performed following IV contrast. Similar to yesterday's appearance, asymmetric right-sided neck soft tissue swelling with diffuse subcutaneous stranding noted. Approximately 2.5 x 1 cm edema/fluid in the soft tissues adjacent to the right mandible also seen on axial image 94, series 2 with moderate subcutaneous emphysema in the right neck, more so superiorly and also extending right pharyngeal/parapharyngeal. Approximately 1.8 cm left mandibular sebaceous cyst incidentally seen on axial image 88. The airway is patent, though diffuse edema or thickening suspected as involving the epiglottis as also increased hypopharyngeal soft tissue/thickening with subtle enhancement occupying the vallecula and piriform sinuses, left more than right as on axial images 115-150, series 2. Left parapharyngeal fat pad is preserved, though obliterated on the right. No size significant adenopathy. Right submandibular gland asymmetrically larger than the left at approximately 3.5 x 2 cm as on axial image 118, amongst others. Normal imaged thyroid. Bilateral upper lobe emphysematous changes, including peripheral bullae measuring up to approximately 4-5 cm. Patent major neck vessels. Normal intracranial appearance. Clear paranasal sinuses and mastoid air cells. Streak artifact from few radiopaque dental material. Few missing teeth and small anterior maxillary periapical cysts also noted. Moderate multilevel cervical spondylosis. CONCLUSION: 1. Asymmetric right sided neck swelling and soft tissue emphysema, worrisome for occult pharyngeal/hypopharyngeal perforation with suspected soft tissue thickening/mass, as described. Neoplasm remains to be excluded. ENT correlation/direct visualization suggested. 2. Various other incidental findings, as above. Thank you for the opportunity to participate in this patient's care.
--- NOTE | 2017-05-30 13:02 | Progress Note ---
Assessment and Plan Assessment and plan: Acute respiratory failure with hypoxia Continue O2 and BiPAP as clinically indicated. Aggressive Nebulizers/Inhalers ABG when necessary Oxygen supplement Pulmonary consult. Supportive care Severe Sepsis Blood and urine culture collected prior to antibiotic Follow-up with cultures Continue IV vancomycin and Zosyn and Levaquin. De-escalate antibiotics once cultures are C Supportive care Leukocytosis Secondary to sepsis Treat with antibiotic and we will repeat CBC Closely monitor Acute COPD exacerbation Continue on Duoneb every 6 hours Wean IV steroid Solumedrol Continue IV antibiotics Oxygen as necessary Possible pneumonia Unremarkable chest x-ray CTA revealed no evidence pulmonary embolism Fever and physical assessment indicates pneumonia Elevated lactic acid Secondary to sepsis We will repeat lactic acid level Closely monitor Lymphadenopathy VS neck neoplasm CTA revealed Lymphadenopathy VS neck neoplasm CT scan of the neck revealed occult differential/hypopharyngeal perforation with suspected soft tissue mass. ENT consultation. Hypertensive urgency Continue home antihypertensive medications Closely monitor blood pressure Mild Rhabdomyolysis IV fluid hydration Closely monitor total creatinine kinase Tobacco use Smoking cessation counseling done. Patient strongly advised to quit. DVT prophylaxis Lovenox History Interval history: No new issues overnight. Hospitalist Physical - Constitutional Vitals: Temp Pulse Resp BP Pulse Ox 98.0 F 99 H 20 128/83 98 05/30/17 07:11 05/30/17 09:35 05/30/17 09:35 05/30/17 07:11 05/30/17 09:24 General appearance: Present: mild distress (On BiPAP 35% with Spo2 >95%) - EENT Eyes: Present: PERRL, EOM intact ENT: hearing intact, clear oral mucosa, dentition normal - Neck Neck: Present: supple, normal ROM - Respiratory Respiratory effort: normal Respiratory: bilateral: diminished, rhonchi, wheezing - Cardiovascular Rhythm: regular Heart Sounds: Present: S1 & S2. Absent: gallop, rub - Extremities Extremities: no ischemia, No edema, Full ROM - Abdominal General gastrointestinal: soft, non-tender, non-distended, normal bowel sounds - Integumentary Integumentary: Present: clear, warm, dry - Neurologic Neurologic: CNII-XII intact, moves all extremities Results - Labs CBC & Chem 7: 05/29/17 07:58 05/29/17 07:58 Labs: Laboratory Last Values WBC 23.6 K/mm3 (4.5-11.0) H 05/29/17 07:58 RBC 5.09 M/mm3 (3.65-5.03) H 05/29/17 07:58 Hgb 15.8 gm/dl (11.8-15.2) H 05/29/17 07:58 Hct 46.4 % (35.5-45.6) H 05/29/17 07:58 MCV 91 fl (84-94) 05/29/17 07:58 MCH 31 pg (28-32) 05/29/17 07:58 MCHC 34 % (32-34) 05/29/17 07:58 RDW 13.7 % (13.2-15.2) 05/29/17 07:58 Plt Count 177 K/mm3 (140-440) 05/29/17 07:58 Add Manual Diff Complete 05/29/17 07:58 Total Counted 100 05/29/17 07:58 Seg Neuts % (Manual) 91.0 % (40.0-70.0) H 05/29/17 07:58 Band Neutrophils % 2.0 % 05/29/17 07:58 Lymphocytes % (Manual) 2.0 % (13.4-35.0) L 05/29/17 07:58 Reactive Lymphs % (Man) 0 % 05/29/17 07:58 Monocytes % (Manual) 5.0 % (0.0-7.3) 05/29/17 07:58 Eosinophils % (Manual) 0 % (0.0-4.3) 05/29/17 07:58 Basophils % (Manual) 0 % (0.0-1.8) 05/29/17 07:58 Metamyelocytes % 0 % 05/29/17 07:58 Myelocytes % 0 % 05/29/17 07:58 Promyelocytes % 0 % 05/29/17 07:58 Blast Cells % 0 % 05/29/17 07:58 Nucleated RBC % Not Reportable 05/29/17 07:58 Seg Neutrophils # Man 21.5 K/mm3 (1.8-7.7) H 05/29/17 07:58 Band Neutrophils # 0.5 K/mm3 05/29/17 07:58 Lymphocytes # (Manual) 0.5 K/mm3 (1.2-5.4) L 05/29/17 07:58 Abs React Lymphs (Man) 0.0 K/mm3 05/29/17 07:58 Monocytes # (Manual) 1.2 K/mm3 (0.0-0.8) H 05/29/17 07:58 Eosinophils # (Manual) 0.0 K/mm3 (0.0-0.4) 05/29/17 07:58 Basophils # (Manual) 0.0 K/mm3 (0.0-0.1) 05/29/17 07:58 Metamyelocytes # 0.0 K/mm3 05/29/17 07:58 Myelocytes # 0.0 K/mm3 05/29/17 07:58 Promyelocytes # 0.0 K/mm3 05/29/17 07:58 Blast Cells # 0.0 K/mm3 05/29/17 07:58 WBC Morphology Not Reportable 05/29/17 07:58 Hypersegmented Neuts Not Reportable 05/29/17 07:58 Hyposegmented Neuts Not Reportable 05/29/17 07:58 Hypogranular Neuts Not Reportable 05/29/17 07:58 Smudge Cells Not Reportable 05/29/17 07:58 Toxic Granulation Not Reportable 05/29/17 07:58 Toxic Vacuolation Not Reportable 05/29/17 07:58 Dohle Bodies Not Reportable 05/29/17 07:58 Pelger-Huet Anomaly Not Reportable 05/29/17 07:58 Olegario Rods Not Reportable 05/29/17 07:58 Platelet Estimate Appears normal 05/29/17 07:58 Clumped Platelets Not Reportable 05/29/17 07:58 Plt Clumps, EDTA Not Reportable 05/29/17 07:58 Large Platelets Not Reportable 05/29/17 07:58 Giant Platelets Not Reportable 05/29/17 07:58 Platelet Satelliting Not Reportable 05/29/17 07:58 Plt Morphology Comment Not Reportable 05/29/17 07:58 RBC Morphology Normal 05/29/17 07:58 Dimorphic RBCs Not Reportable 05/29/17 07:58 Polychromasia Not Reportable 05/29/17 07:58 Hypochromasia Not Reportable 05/29/17 07:58 Poikilocytosis Not Reportable 05/29/17 07:58 Anisocytosis Not Reportable 05/29/17 07:58 Microcytosis Not Reportable 05/29/17 07:58 Macrocytosis Not Reportable 05/29/17 07:58 Spherocytes Not Reportable 05/29/17 07:58 Pappenheimer Bodies Not Reportable 05/29/17 07:58 Sickle Cells Not Reportable 05/29/17 07:58 Target Cells Not Reportable 05/29/17 07:58 Tear Drop Cells Not Reportable 05/29/17 07:58 Ovalocytes Not Reportable 05/29/17 07:58 Helmet Cells Not Reportable 05/29/17 07:58 [place] Bodies Not Reportable 05/29/17 07:58 [place] Rings Not Reportable 05/29/17 07:58 [place] Cells Not Reportable 05/29/17 07:58 Bite Cells Not Reportable 05/29/17 07:58 Crenated Cell Not Reportable 05/29/17 07:58 Elliptocytes Not Reportable 05/29/17 07:58 Acanthocytes (Spur) Not Reportable 05/29/17 07:58 Rouleaux Not Reportable 05/29/17 07:58 Hemoglobin C Crystals Not Reportable 05/29/17 07:58 Schistocytes Not Reportable 05/29/17 07:58 Malaria parasites Not Reportable 05/29/17 07:58 João Bodies Not Reportable 05/29/17 07:58 Hem Pathologist Commnt No 05/29/17 07:58 POC ABG pH 7.452 (7.35-7.45) H 05/29/17 09:22 POC ABG pCO2 28.2 (35-45) L 05/29/17 09:22 POC ABG pO2 95 (80-105) 05/29/17 09:22 POC ABG HCO3 19.7 05/29/17 09:22 POC ABG Total CO2 21 05/29/17 09:22 POC ABG O2 Sat 98 05/29/17 09:22 POC ABG Base Excess -4 05/29/17 09:22 FiO2 30 % 05/29/17 09:22 Sodium 140 mmol/L (137-145) 05/29/17 07:58 Potassium 3.7 mmol/L (3.6-5.0) 05/29/17 07:58 Chloride 100.9 mmol/L (98-107) 05/29/17 07:58 Carbon Dioxide 21 mmol/L (22-30) L 05/29/17 07:58 Anion Gap 22 mmol/L 05/29/17 07:58 BUN 14 mg/dL (9-20) 05/29/17 07:58 Creatinine 0.9 mg/dL (0.8-1.5) 05/29/17 07:58 Estimated GFR > 60 ml/min 05/29/17 07:58 BUN/Creatinine Ratio 15.55 % 05/29/17 07:58 Glucose 161 mg/dL (75-100) H 05/29/17 07:58 Lactic Acid 2.40 mmol/L (0.7-2.0) H* 05/29/17 12:37 Calcium 9.5 mg/dL (8.4-10.2) 05/29/17 07:58 Total Creatine Kinase 273 units/L (55-170) H 05/29/17 08:08 Troponin T < 0.010 ng/mL (0.00-0.029) 05/29/17 07:58 NT-Pro-B Natriuret Pep 683.4 pg/mL (0-900) 05/29/17 08:08 Urine Color Yellow (Yellow) 05/29/17 08:00 Urine Turbidity Clear (Clear) 05/29/17 08:00 Urine pH 6.0 (5.0-7.0) 05/29/17 08:00 Ur Specific [place] 1.036 (1.003-1.030) H 05/29/17 08:00 Urine Protein 100 mg/dl mg/dL (Negative) 05/29/17 08:00 Urine Glucose (UA) Neg mg/dL (Negative) 05/29/17 08:00 Urine Ketones Tr mg/dL (Negative) 05/29/17 08:00 Urine Blood Mod (Negative) 05/29/17 08:00 Urine Nitrite Neg (Negative) 05/29/17 08:00 Urine Bilirubin Neg (Negative) 05/29/17 08:00 Urine Urobilinogen < 2.0 mg/dL (<2.0) 05/29/17 08:00 Ur Leukocyte Esterase Neg (Negative) 05/29/17 08:00 Urine WBC (Auto) 1.0 /HPF (0.0-6.0) 05/29/17 08:00 Urine RBC (Auto) 4.0 /HPF (0.0-6.0) 05/29/17 08:00 Urine Mucus Few /HPF 05/29/17 08:00 Blood Type B POSITIVE 05/29/17 08:14 Antibody Screen Negative 05/29/17 08:14
[2017-05-30] MEDS: LEVAQUIN 750MG/150ML 750 MG/150 ML BAG IV SCH (16:39)
[2017-05-30] MEDS: NACL 0.9% 1000 ML 1,000 ML IV SCH (18:12)
[2017-05-31 00:18] VITALS: BP 116/80
[2017-05-31] MEDS: DUONEB *Not for PRN Use IH SCH (01:39)
== END 2017-05-31 01:35 | disposition short-term general hospital (02) | DRG 871 ==
LOC: ED 07:43 → 3A 11:03
PROVIDERS: ADMIT Internal Medicine; ATTEND Hospitalist
PROC: 4A033R1 Measurement of Arterial Saturation, Peripheral, Percutaneous Approach (ICD-10-PCS; principal; 2017-05-29)
PROC: 5A09457 Assistance with Respiratory Ventilation, 24-96 Consecutive Hours, Continuous Positive Airway Pressure (ICD-10-PCS; 2017-05-29)
DX: A41.9 Sepsis, unspecified organism (principal); J96.01 Acute respiratory failure with hypoxia; E87.2 Acidosis; J44.1 Chronic obstructive pulmonary disease with (acute) exacerbation; M62.82 Rhabdomyolysis; F17.210 Nicotine dependence, cigarettes, uncomplicated; Z82.49 Family history of ischemic heart disease and other diseases of the circulatory system; I16.0 Hypertensive urgency; Z71.6 Tobacco abuse counseling
CPT/HCPCS: 36415; 70491; 71010; 71275; 80048; 81001; 82140; 82550; 82803; 83880; 84484; 85007; 85025; 86850; 86900; 86901; 87040; 87086; 87205; 90686; 93005; 93010; 94640; 94660; 94760; 96361; 96374; 99291; 99406; J1650; J1956; J2543; J2920; J2930; J3370; J7030; J7040; Q9967